=== PATIENT | male | born 1960 | race Caucasian/White ===

== ENCOUNTER 2017-01-13 12:37 | Emergency (ER) | payer SELFPAY ==
[2017-01-13 12:37] VITALS: BMI 31.1
[2017-01-13 13:19] VITALS: TEMP 98.2
[2017-01-13] MEDS ORDERED: Sodium Chloride 0.9% 1,000 ML IV ONE (14:28)
[2017-01-13] MEDS ORDERED: (Novolin R) Insulin Human Regular 100 units/ml vial IV STA (14:37)
--- NOTE | 2017-01-13 14:57 | RAD ---
HISTORY: Diabetic COMPARISON: 03/04/2016 TECHNIQUE: Chest PA and lateral FINDINGS: LUNGS: No active pulmonary disease. PLEURA: No significant pleural effusion identified. No pneumothorax apparent. CARDIOVASCULAR: Normal. OSSEOUS STRUCTURES: Productive change at the ends of the 1st ribs. VISUALIZED UPPER ABDOMEN: Normal. OTHER FINDINGS: None. IMPRESSION: No active disease.
[2017-01-13] MEDS ORDERED: (Novolin R) Insulin Human Regular 100 units/ml vial ONE (15:00)
[2017-01-13 15:05] LABS: BASO % 0.3 % (0.0-2.0); EOS # 0.3 K/uL (0.0-0.7); HEMATOCRIT 43.8 % (35.0-51.0); LYMPH # 1.6 K/uL (1.0-4.3); LYMPH % 28.2 % (20.0-40.0); MEAN CORPUSCULAR HEMOGLOBIN 28.8 pg (27.0-31.0); MEAN CORPUSCULAR HGB CONC 34.3 g/dL (33.0-37.0); MEAN PLATELET VOLUME 9.2 fL (7.2-11.7); MONO # 0.6 K/uL (0.0-0.8); MONO % 10.1 % (0.0-10.0); WHITE BLOOD COUNT 5.5 K/uL (4.8-10.8)
--- NOTE | 2017-01-13 15:15 | C.PDOC ---
History Of Present Illness 56 y/o male presents to ED with c/o headache, "feeling woozy", and poorly controlled blood sugar at home. 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 Pt reports he typically eats bread for breakfast, with insulin 10 regular subQ, with no afternoon meal. Pt states he eats a large meal for dinner at 8PM, with insulin 40 subQ, with Actos. Notes he eats a snack when he gets home at 3AM. Blood sugars are reportedly 100 +/- 20 in the morning, and 200 +/- 50 in the evenings. Otherwise, denies fever, chills , abdominal pain, nausea, vomiting, diarrhea, or other associated symptoms. Time Seen by Provider: 01/13/17 13:52 Chief Complaint (Nursing): High Blood Pressure History Per: Patient History/Exam Limitations: no limitations Onset/Duration Of Symptoms: Days Current Symptoms Are (Timing): Still Present Associated Symptoms: Headache. denies: Chest Pain, Focal Weakness Recent travel outside of the [place]: No Past Medical History Reviewed: Historical Data, Nursing Documentation, Vital Signs Vital Signs: Last Vital Signs Temp 98.2 F 01/13/17 13:15 Pulse 71 01/13/17 15:16 Resp 18 01/13/17 15:16 BP 130/80 01/13/17 15:16 Pulse Ox 99 01/13/17 16:03 - Medical History PMH: HTN Family History: States: Unknown Family Hx - Social History Hx Alcohol Use: No Hx Substance Use: No - Immunization History Hx Tetanus Toxoid Vaccination: No Hx Influenza Vaccination: No Hx Pneumococcal Vaccination: No Review Of Systems Except As Marked, All Systems Reviewed And Found Negative. Constitutional: Positive for: Malaise, Other (weight between 220-240 lbs, recently gaining weight). Negative for: Fever, Chills Cardiovascular: Negative for: Chest Pain, Palpitations Respiratory: Negative for: Cough, Shortness of Breath, Wheezing Gastrointestinal: Negative for: Nausea, Vomiting Skin: Negative for: Rash Neurological: Positive for: Headache Physical Exam - Physical Exam Appears: Non-toxic, Other (obese, [place] male) Skin: Warm, Dry Head: Atraumatic, Normacephalic Oral Mucosa: Moist Chest: Symmetrical Cardiovascular: Rhythm Regular Respiratory: Normal Breath Sounds, No Rales, No Rhonchi, No Wheezing Gastrointestinal/Abdominal: Soft, No Tenderness, No Guarding, No Rebound Back: Normal Inspection Extremity: Normal ROM, Capillary Refill (< 2 sec.) Neurological/Psych: Oriented x3, Normal Speech, Normal Cognition ED Course And Treatment - Laboratory Results Result Diagrams: 01/13/17 14:59 01/13/17 14:59 Lab Interpretation: Abnormal (mild elev glu) ECG: Interpreted By Me ECG Rhythm: Sinus Rhythm ECG Interpretation: Normal Rate From EC O2 Sat by Pulse Oximetry: 99 (RA) Pulse Ox Interpretation: Normal - Radiology CXR: Interpreted by Me CXR Interpretation: Yes: No Acute Disease Progress Note: IVF, insulin Reevaluation Time: 15:56 Reassessment Condition: Improved Medical Decision Making Medical Decision Making: atypical insulin/diet regimen due to 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 dinner meal @ 9PM (prior to evening shift) with insulin 40 Reg SQ giving satisfactory AM glu +/- 100 @ 8AM. Continue Actose with evening meal (9PM) as this is your larger meal of the day. pt eating high carb breakfast with only 10 units SQ insulin REg @ 10AM- recommended to increase AM insulin from 10-20 and modify Am carb to more complex carb (from bread/cake to oatmeal and 1 egg) Recommend to check FS @ 3PM to eval how AM meal/insulin regimen is working. 3PM snack/lunch encouraged after 3PM fingere stick, to help decrease night-time 9PM meal calories Accurate FS log THREE times a day for the next 2 weeks, then present w PMD to eval med changes. BP: moderately well controlled on Valsartan, and at minimal doses given BID due to pt's odd work schedule Encouraged to take Valsartan 80 mg in AM and 40 mg in PM BP check in 3 weeks with PMD Disposition Doctor Will See Patient In The: Office Counseled Patient/Family Regarding: Studies Performed, Diagnosis - Disposition Referrals: Luke Gonsalves MD [Medical Doctor] - Disposition: HOME/ ROUTINE Disposition Time: 16:03 Condition: GOOD Instructions: Hypertension (ED), Diabetes Mellitus Type 2 in Adults (ED) Forms: [employer] (Swedish) - Clinical Impression Clinical Impression: Hypertension, Uncontrolled diabetes mellitus - Scribe Statement The provider has reviewed the documentation as recorded by the Scribe SM All medical record entries made by the Scribe were at my direction and personally dictated by me. I have reviewed the chart and agree that the record accurately reflects my personal performance of the history, physical exam, medical decision making, and the department course for this patient. I have also personally directed, reviewed, and agree with the discharge instructions and disposition.
[2017-01-13 15:17] VITALS: BP 130/80; PULSE 71; RESP 18
[2017-01-13 15:20] LABS: CHLORIDE 98 mmol/L (98-107)
[2017-01-13 15:21] LABS: SODIUM 132 mmol/L (132-148)
[2017-01-13 15:23] LABS: ALB/GLOB RATIO 1.6 (1.0-2.1); ALKALINE PHOSPHATASE 66 U/L (38-126); AST/SGOT 19 U/L (17-59); BLOOD UREA NITROGEN 15 mg/dL (9-20); CARBON DIOXIDE 24 mmol/L (22-30); GFR AFRICAN-AMERICAN > 60; TOTAL PROTEIN 6.6 g/dL (6.3-8.3)
[2017-01-13 15:24] LABS: ALT/SGPT 33 U/L (21-72); CALCIUM 8.8 mg/dl (8.6-10.4); GLUCOSE,RANDOM 187 mg/dL (75-110)
[2017-01-13 15:36] VITALS: O2SAT 99
--- NOTE | 2017-01-14 19:01 | CARD ---
APPROVED REPORT EKG Measurement Heart [id number] <Conclusion> Normal sinus rhythm Normal ECG
== END 2017-01-13 16:51 | disposition home or self-care (01) ==
LOC: C.ER 12:37
DX: I10 Essential (primary) hypertension (principal); E11.65 Type 2 diabetes mellitus with hyperglycemia; Z79.4 Long term (current) use of insulin
CPT/HCPCS: 71020; 80053; 82009; 82948; 85025; 93005; 96360; 99284; J7040

== ENCOUNTER 2017-06-18 22:56 | Emergency (ER) | payer MEDICAID ==
[2017-06-18 22:56] VITALS: BMI 31.1
[2017-06-18 23:01] VITALS: O2SAT 98
--- NOTE | 2017-06-18 23:27 | C.PDOC ---
History Of Present Illness 57 year old male presents to the ED complaining of right-sided neck pain, ongoing for the past month. Pain is radiating to the right shoulder. Patient reports using biofreeze and Advil with minimal relief at home. He states the pain worsened today, prompting him to come to the ED. Denies any associated numbness, tingling, paresthesias, headache, bowel/bladder incontinence, chest pain, or SOB. No recent trauma or heavy lifting. Time Seen by Provider: 06/18/17 23:03 Chief Complaint (Nursing): Upper Extremity Problem/Injury History Per: Patient History/Exam Limitations: no limitations Onset/Duration Of Symptoms: Days (x 1 month) Current Symptoms Are (Timing): Still Present Past Medical History Reviewed: Historical Data, Nursing Documentation, Vital Signs Vital Signs: Last Vital Signs Temp 98.2 F 06/19/17 00:27 Pulse 89 06/19/17 00:27 Resp 19 06/19/17 00:27 BP 122/79 06/19/17 00:27 Pulse Ox 98 06/19/17 00:30 - Medical History PMH: Diabetes, HTN Denies: Chronic Kidney Disease Other PMH: Neuropathy Surgical History: No Surg Hx Family History: States: Unknown Family Hx - Social History Hx Tobacco Use: No Hx Alcohol Use: No Hx Substance Use: No - Immunization History Hx Tetanus Toxoid Vaccination: No Hx Influenza Vaccination: No Hx Pneumococcal Vaccination: No Review Of Systems Except As Marked, All Systems Reviewed And Found Negative. Cardiovascular: Negative for: Chest Pain Respiratory: Negative for: Shortness of Breath Genitourinary: Negative for: Incontinence Musculoskeletal: Positive for: Neck Pain, Shoulder Pain Neurological: Negative for: Weakness, Numbness, Headache, Other (tingling or paresthesias) Physical Exam - Physical Exam Appears: Non-toxic, No Acute Distress Skin: Normal Color, Warm, Dry Head: Atraumatic, Normacephalic Eye(s): bilateral: Normal Inspection, PERRL, EOMI Neck: No Midline Cervical Tenderness, Paracervical Tenderness (right-sided), No Step Off Deformity Chest: Symmetrical Back: No Vertebral Tenderness, Muscle Spasm (moderate spasm noted to right trapezius) Extremity: Bilateral: Atraumatic, Normal ROM Neurological/Psych: Oriented x3, Normal Speech, No Other (focal deficits) ED Course And Treatment O2 Sat by Pulse Oximetry: 98 (RA) Pulse Ox Interpretation: Normal Medical Decision Making Medical Decision Making: Time: 23:12 Initial Plan: * X-ray cervical spine * 30 mg Toradol IM * 10 mg Flexeril PO * 40 mg Prednisone PO * Reevaluation On re-exam, the patient reports feeling well and having improvement of symptoms. lungs are CTA, heart is RRR, Abdomen is soft, non-tender and the patient is tolerating PO well. Follow up with the medical doctor within 1-2 days. Return if worsened. Disposition - Disposition Referrals: Kaden Douglas MD [Non-Staff] - Disposition: HOME/ ROUTINE Disposition Time: 00:27 Condition: IMPROVED Additional Instructions: Follow up with the medical doctor within 1-2 days. return if worsened. 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 - Scribe Statement The provider has reviewed the documentation as recorded by the Scribe (Maite Leija) All medical record entries made by the Scribe were at my direction and personally dictated by me. I have reviewed the chart and agree that the record accurately reflects my personal performance of the history, physical exam, medical decision making, and the department course for this patient. I have also personally directed, reviewed, and agree with the discharge instructions and disposition.
[2017-06-19 00:31] VITALS: BP 122/79; PULSE 89; RESP 19; TEMP 98.2
--- NOTE | 2017-06-19 10:08 | RAD ---
Cervical spine three views History: Right-sided pain. Comparison: None available. Findings: Cervical spine visualized from C1 through C7. Mild loss height of the inferior endplates of the C4, C5, and C6 vertebral bodies. Question mild prevertebral soft tissue swelling. Prominent multilevel anterior osteophytosis from the C2 through C6 levels. Sheet like bony bridging seen at the anterior aspect of the C4-5 level. Questionable discontinuity of the anterior osteophyte at the C3-4 level. Clinical correlation. In addition, questionable discontinuity of the anterior osteophyte at the base of the C2 vertebral body. This may be better delineated with a CT of the cervical spine if clinically indicated. Alternatively, correlation with MRI may be helpful to better determine chronicity and or any acute bony involvement. Multilevel posterior disc osteophyte complexes. Few punctate radiopaque densities project within the posterior soft tissues at the level of the C7 and C6 posterior spinous processes. Multilevel uncovertebral joint and facet hypertrophy. Dens is intact. Impression: 1. Question mild prevertebral soft tissue swelling. 2. Prominent multilevel anterior osteophytosis from the C2 through C6 levels. Sheet like bony bridging seen at the anterior aspect of the C4-5 level. Questionable discontinuity of the anterior osteophyte at the C3-4 level. Clinical correlation. In addition, questionable discontinuity of the anterior osteophyte at the base of the C2 vertebral body. This may be better delineated with a CT of the cervical spine if clinically indicated. Alternatively, correlation with MRI may be helpful to better determine chronicity and or any acute bony involvement. 3. Multilevel posterior disc osteophyte complexes. 4. Mild loss height of the inferior endplates of the C4, C5, and C6 vertebral bodies. 5. Few punctate radiopaque densities project within the posterior soft tissues at the level of the C7 and C6 posterior spinous processes. 6. Multilevel uncovertebral joint and facet hypertrophy.
== END 2017-06-19 00:37 | disposition home or self-care (01) ==
LOC: C.ER 22:56
DX: M54.12 Radiculopathy, cervical region (principal)
CPT/HCPCS: 72040; 96372; 99283; J1885